=== PATIENT | female | born 1970 | race Caucasian/White ===

== ENCOUNTER 2025-02-25 18:51 | Emergency (ER) | payer MEDICARE ==
[~2025-02-25] VITALS: Ht 177.8 cm; Wt 95.3 kg
[2025-02-25] MEDS ORDERED: PRILOSEC20 M1 PO (19:25)
[2025-02-25 20:18] LABS: BASO # 0.1 10*3/uL (0.0-0.1); BASO % 0.8 % (0.0-1.0); EOS # 0.2 10*3/uL (0.0-0.4); EOS % 2.9 % (1.0-4.0); HEMATOCRIT 42.2 % (37.0-47.0); MEAN CELL VOLUME 92.1 fl (81.0-99.0); MEAN CORPUSCULAR HGB 30.8 pg (27.0-31.0); MEAN CORPUSCULAR HGB CONC 33.4 g/dl (33.0-37.0); MEAN PLATELET VOLUME 11.1 fl (9.6-12.3); MONO # 0.6 10*3/uL (0.1-1.0); MONO % 7.4 % (3.0-9.0); NEUT # 4.1 10*3/uL (2.3-7.9); NEUT % 50.7 % (47.0-73.0); PLATELET COUNT AUTOMATED 207 10*3/uL (130-400); RED BLOOD COUNT 4.58 10*6/uL (4.10-5.10); RED CELL DISTRI WIDTH 14.4 % (0-14.5)
[2025-02-25 20:43] LABS: ALKALINE PHOSPHATASE 39 U/L (46-116); BUN 10 mg/dl (9-23); CHLORIDE 107 mmol/L (98-107); CPK 98 U/L (34-171); POTASSIUM 3.9 mmol/L (3.4-5.1); SGPT/ALT 16 U/L (5-49); TOTAL PROTEIN 6.3 gm/dL (6.0-8.0)
== END 2025-02-25 22:10 | disposition home or self-care (01) ==
LOC: ED 18:51
PROVIDERS: Emergency Medicine
DX: I49.3 Ventricular premature depolarization (principal); R53.83 Other fatigue; R00.2 Palpitations; Z79.899 Other long term (current) drug therapy